=== PATIENT | male | born 1935 | race Caucasian/White ===

== ENCOUNTER → 2017-11-26 13:42 | Outpatient (CLI) | payer OTHER, SELFPAY ==
[2017-11-26 14:37] LABS: Hemoglobin 11.2 g/dL (13.5-17.5); Neutrophils Absolute Auto 1200 /uL (3000-5900); White Blood Cell Count 3.6 X10^3/uL (4.5-11.0)
[2017-11-26 14:48] LABS: Add Manual Diff / Slide Review NO; Eosinophils Percent Auto 0.9 % (2-4); Hematocrit 33.7 % (41-53); Lymphocytes Percent Auto 36.3 % (25-40); Mean Corpuscular HGB Conc 33.2 % (30-36); Mean Corpuscular Hemoglobin 28.1 PG (26-34); Mean Corpuscular Volume 84.5 fL (80-100); Monocytes Percent Auto 27.3 % (3-14); Neutrophils Percent Auto 34.5 % (50-75); Platelet Count 183 X10^3/uL (150-400); Red Blood Cell Count 3.99 X10^6/uL (4.5-5.9); Red Cell Distribution Width 16.7 % (11.6-14.8)
[2017-11-29 14:12] LABS: Albumin 23 %; Protein/ Creatinine Ratio 149 mg/g creat (22-128); Total Urine Protein 25 mg/dL (5-25); Urine Creatinine, Random 168 mg/dL (20-370)
[2017-11-29 16:40] LABS: Abnormal Protein Band 1 5 mg/dL (NONE DETECTED)
[2017-12-05 13:37] LABS: Albumin 23; Alpha 1 Globulin 3; Alpha 2 Globulin 8
[2017-12-05 13:38] LABS: Beta 1 Globulin 18; Gamma Globulin 48
[2017-12-06 17:17] LABS: Protein, Total 8.4 g/dL (6.1-8.1)
== END ==
PROVIDERS: Family Provider Family Medicine; PCP Family Medicine; Visit Provider Family Medicine
DX: D47.2 Monoclonal gammopathy (principal)
CPT/HCPCS: 36415; 84155; 84156; 84165; 84166; 85025

== ENCOUNTER 2018-05-05 09:23 | Emergency (ER) | payer OTHER, SELFPAY ==
[2018-05-05 09:38] VITALS: BP 160/75; PULSE 76; RESP 14; TEMP 36.7; O2SAT 98
--- NOTE | 2018-05-05 09:45 | ED_ITS ---
HPI - Back Pain/Injury General Chief Complaint: Back Pain/Injury Stated Complaint: lower back issue Time Seen by Provider: 05/05/18 09:35 Source: patient Mode of arrival: ambulatory Limitations: no limitations History of Present Illness HPI Narrative: Patient is an 83-year-old male with a history of prostate cancer here for evaluation of 3 days of lower back pain. He does state that it does radiate somewhat down to his left leg. No specific trauma. Not worse with palpation. Somewhat worse with moving. No fevers. No bowel changes. No urinary incontinence however he states that he did not take his Flomax last evening. States that he has not had a scan for his prostate cancer? sometime ? no saddle anesthesia. Related Data Previous Rx's Medication Instructions Recorded fluticasone 0.05 mg INTRANASAL Q DAY PRN PRN 03/01/17 #1 spr sildenafil (antihypertensive) 20 mg PO Q DAY PRN PRN #40 tab 07/05/17 tamsulosin [Flomax] 0.4 mg PO QDAY #90 cap 01/16/18 omeprazole 20 mg capsule,delayed 20 mg PO BID #180 cap 03/04/18 release meloxicam [Mobic] 7.5 mg PO DAILY #30 tab 05/05/18 Allergies Allergy/AdvReac Type Severity Reaction Status Date / Time Penicillins [PENICILLINS] Allergy Unknown Verified 05/05/18 09:41 Review of Systems Constitutional Denies fever(s), Denies headache(s) and Denies weakness ENT Ears, Nose, Mouth, and Throat: Denies headache(s) and Denies disequilibrium Cardiovascular Denies chest pain and Denies dyspnea Respiratory Denies dyspnea Gastrointestinal Gastrointestinal: Denies abdominal pain, Denies change in stool character, Denies nausea and Denies vomiting Genitourinary Denies dysuria, Denies urinary frequency, Denies urinary hesitancy, Denies urinary incontinence and Denies urinary urgency Musculoskeletal Reports back pain, Denies myalgias and Denies arthralgias Integumentary/Breasts Denies rash Neurologic Denies headache(s), Reports radicular pain, Reports paresthesias (Left lower extremity), Denies disequilibrium and Denies weakness Hematologic/Lymphatic Comments: Not on anticoagulation PFSH Medical History Mesenteric panniculitis (Chronic ~2012) Erectile dysfunction (Chronic Unknown) BPH (benign prostatic hyperplasia) (Chronic Unknown) Hyperlipemia (Resolved Unknown) Allergic rhinitis (Chronic 1971) Rosacea (Chronic Unknown) Prostate cancer (Resolved 2007) Skin cancer (Chronic Unknown) Tinnitus of both ears (Chronic Unknown) Arthritis (Chronic Unknown) Fractures (Resolved 2008) Hemorrhoids (Resolved 2011) Measles (Resolved 1943) Mumps (Resolved 1943) Surgical History Hx of prostatectomy (Resolved ~2007) Hx of hand surgery (Resolved 1978) Status post appendectomy (Resolved) Social History Smoking Status: Never smoker alcohol intake: never substance use type: does not use Exam Initial Vital Signs Initial Vital Signs: Vital Signs Temperature 98.0 F 05/05/18 09:38 Pulse Rate 76 05/05/18 09:38 Respiratory Rate 14 05/05/18 09:38 Blood Pressure 160/75 H 05/05/18 09:38 Pulse Oximetry 98 05/05/18 09:38 Const General: cooperative, healthy appearing, comfortable, well developed, well groomed and No acute distress Orientation: alert, awake and oriented x3 HENMT Head: normal to inspection and normocephalic Resp Effort & Inspection: normal respiratory effort Auscultation: clear to auscultation bilaterally Cardio Rate: regular rate Rhythm: regular rhythm GI Inspection: non-distended Palpation: soft and No firm Back/Spine/Pelvis Back: No CVA tenderness Thoracic/Lumbar Spine: No thoraco-lumbar spasm, No thoracic spinal tenderness and No lumbar spinal tenderness Sacroiliac Joints: nontender and No tender to palpation Skin Lesions: no lesions Rashes: no rashes Neuro General: alert, awake and oriented x3 Cognition: normal cognition Speech: speech normal Gait: normal gait Motor: muscle tone normal throughout Sensory Exam: no sensory deficits noted Extrem General: normal to inspection and capillary refill normal Psych Appearance: grossly normal and well kempt Course Orders Ordered: ED Orders 05/05/18 10:06 US abd aorta aneurysm screen Stat Vital Signs - 8 hr 05/05/18 09:38 05/05/18 11:04 Temperature 98.0 F 97.8 F Pulse Rate 76 64 Respiratory Rate 14 16 Blood Pressure 160/75 H Blood Pressure [Right Arm] 162/84 H Pulse Oximetry 98 96 MDM - Back Pain/Injury Lab Data Attestation: I reviewed the patient's lab results. Urine Dip Bedside Urine Glucose Negative Bedside Urine Bilirubin - Negative Bedside Urine Ketone - Negative Urine Specific [place] 1.025 Bedside Urine Occult Blood - Negative Bedside Urine pH 6.0 Bedside Urine Protein +/- 15 Bedside Urine Urobilinogen - Negative Bedside Urine Nitrite - Negative Bedside Urine Leukocytes - Negative Esterase Imaging Data US - abdomen: Radiologist's impression: PROCEDURE: US ABD AORTA ANEURYSM SCREEN INDICATIONS: back pain TECHNIQUE: Real time scanning was performed of the aorta and iliac arteries, with image documentation. COMPARISON: None. FINDINGS: Aorta: Proximal abdominal aorta is obscured by bowel gas and cannot be evaluated. Mid-aorta measures 1.8 cm. Distal aortic diameter is 1.9 cm. Iliac arteries: Right common iliac artery measures 1.3 cm. Left common iliac artery measures 1.2 cm. IMPRESSION: No aneurysm identified in the visualized abdominal aorta. Proximal segment of the abdominal aorta is not visualized due to bowel gas and cannot be evaluated. Dictated by: Mayte Benz MD, PhD on 05/05/2018 at 10:32 Approved by: Mayte Benz MD, PhD on 05/05/2018 at 10:33 [facility] Narrative Medical decision making narrative: Patient's AAA study unremarkable. Urine unremarkable. No rashes consistent with zoster. He does have a history of prostate cancer. I discussed with him the options to include conservative treatment with medications versus obtaining an MRI to evaluate for metastasis. No neurologic change in his extremities. Patient states that the last time he had an MRI he had a difficult time with claustrophobia. He stated that he would rather do conservative treatment for now and then if his symptoms do not improve get an MRI at a later basis by his primary care doctor. He has no red flag symptoms concerning for cauda equina today. Patient does not want any ? mind altering ?medications due to his history of alcoholism. Will send home with prescription for Mobic. He was given other conservative treatments. He was given return precautions. He expressed understanding and agreement with plan. Discharge Plan Departure Patient Disposition: Home Clinical Impression: Lower back pain Instructions: Back Pain (Alternative Therapy), Low Back Pain, Activity May Be Better then Rest for Low Back Pain Recovery Activity Restrictions/Additional Instructions: I recommend that you continue all of your medications as directed. Start taking the Mobic like we discussed. I also recommend that you contact your primary care doctor for a follow-up so that if your symptoms do not improve you can discuss the indications for an MRI. Return to the emergency department for any new or worsening symptoms Prescriptions: New meloxicam [Mobic] 7.5 mg tablet 7.5 mg PO DAILY Qty: 30 RF: 0 No Action omeprazole 20 mg capsule,delayed release(DR/EC) 20 mg PO BID Qty: 180 RF: 3 fluticasone 16 GM spray,suspension 0.05 mg Intranasal Q DAY PRN PRNQty: 1 RF: 5 sildenafil (antihypertensive) 20 MG tablet 20 mg PO Q DAY PRN PRNQty: 40 RF: 5 tamsulosin [Flomax] 0.4 mg capsule 0.4 mg PO QDAY Qty: 90 RF: 3
--- NOTE | 2018-05-05 09:55 | PC.NURSE ---
Neuro intact. Moving bowels regularly. No urinary retention. Denies numbness, [place] = well.
--- NOTE | 2018-05-05 10:06 | DI.US.S_ITS ---
PROCEDURE: US ABD AORTA ANEURYSM SCREEN INDICATIONS: back pain TECHNIQUE: Real time scanning was performed of the aorta and iliac arteries, with image documentation. COMPARISON: None. FINDINGS: Aorta: Proximal abdominal aorta is obscured by bowel gas and cannot be evaluated. Mid-aorta measures 1.8 cm. Distal aortic diameter is 1.9 cm. Iliac arteries: Right common iliac artery measures 1.3 cm. Left common iliac artery measures 1.2 cm. IMPRESSION: No aneurysm identified in the visualized abdominal aorta. Proximal segment of the abdominal aorta is not visualized due to bowel gas and cannot be evaluated. Dictated by: Mayte Benz MD, PhD on 05/05/2018 at 10:32 Approved by: Mayte Benz MD, PhD on 05/05/2018 at 10:33
[2018-05-05 11:04] VITALS: BP 162/84; PULSE 64; RESP 16; TEMP 36.6; O2SAT 96
[2018-05-05 11:46] VITALS: BP 152/87; PULSE 63; RESP 20; O2SAT 98
== END 2018-05-05 11:47 | disposition home or self-care (01) ==
PROVIDERS: Emergency Provider Emergency Medicine; PCP Student in an Organized Health Care Education/Training Program
DX: M54.5 Low back pain (principal)
CPT/HCPCS: 76706; 81003; 99282; 99284

== ENCOUNTER 2018-05-27 09:45 | Outpatient (RCR) | payer OTHER, SELFPAY ==
--- NOTE | 2018-04-17 16:34 | PT.OIE ---
Current Diagnoses Benign paroxysmal vertigo, unspecified ear (04/17/18) Past Medical History (Last Updated 03/06/18 @ 08:12 by Gerald Joel MD) Mesenteric panniculitis (Chronic ~2012) Erectile dysfunction (Chronic Unknown) BPH (benign prostatic hyperplasia) (Chronic Unknown) Hyperlipemia (Resolved Unknown) Allergic rhinitis (Chronic 1972) Rosacea (Chronic Unknown) Prostate cancer (Resolved 2007) Skin cancer (Chronic Unknown) Tinnitus of both ears (Chronic Unknown) Arthritis (Chronic Unknown) Fractures (Resolved 2008) Hemorrhoids (Resolved 2011) Measles (Resolved 1943) Mumps (Resolved 1943) Past Surgical History (Last Updated 03/06/18 @ 08:12 by Gerald Joel MD) Hx of prostatectomy (Resolved ~2007) Hx of hand surgery (Resolved 1978) Status post appendectomy (Resolved) Provider Visit Care Team Role Provider Type Destin Rocha MD Family Provider Physician Specialty: Family Practice Address: [address] [place] [address] Email: [email or web address] Gerald Joel MD Attending Provider Physician Primary Care Provider Specialty: Internal Medicine Address: [address] [place] [address] Email: Physical Therapy Initial Evaluation PT-OP-A Visit Information Start: 04/17/18 08:18 Freq: Status: Active Protocol: Document 04/17/18 13:45 AMB (Rec: 04/19/18 16:08 AMB [email or web address]) Out-Patient Physical Therapy Visit Information Visit Information Visit Type Initial Evaluation Visit Start Time 13:45 Visit Stop Time 14:30 Total Visit Minutes 45 Visit Number 1 Evaluation Information Evaluation Date 04/17/18 PT-OP-B Current Condition Start: 04/17/18 08:18 Freq: Status: Active Protocol: Document 04/17/18 13:45 AMB (Rec: 04/19/18 16:25 AMB [email or web address]) Current Condition History of Current Condition Onset Date 2018 Current Complaints dizziness with quick head movements History of Current Condition The patient was seen a few months ago by his PCP. At that time he did have dizziness and spinning with rolling over in bed. Now that has resolved, but he does have a few moments of dizziness when coming up from bending forward, and when turning quickly. He was tested at his PCPs office for orthostatic hypotension and per his report that was negative. He has been managing his 's transition to institutional care for her Alzheimer's and that is why it took so long to get in here . Prior Functional Status Baseline Function- ADL's Independent Baseline Function- Mobility Independent Current Functional Impairments (Reported) Functional Limitations- ADL's Difficulty with quick turns of the head Personal Factors Other Personal Factors That May Effect history of prostate cancer Therapy/Recovery PT-OP-C Subjective Start: 04/17/18 08:18 Freq: Status: Active Protocol: Document 04/17/18 13:45 AMB (Rec: 04/19/18 16:10 AMB [email or web address]) Patient Questionnaires ABC- Activity Specific Balance Confidence Scale ABC Score 97 ABC Functional Impairment 1 to <20% Impaired (Score 81- 99) Dizziness Handicap Inventory DHI Score 8 DHI Functional Impairment 1 to 19% Impaired (Score 1-19) PT-OP-D Balance Start: 04/17/18 08:18 Freq: Status: Active Protocol: Document 04/17/18 13:45 AMB (Rec: 04/19/18 16:15 AMB [email or web address]) Balance Tests Single Limb Standing Single Limb- Right 10 sec Single Limb- Left 10 sec PT-OP-O Vestibular Start: 04/17/18 08:18 Freq: Status: Active Protocol: Document 04/17/18 13:45 AMB (Rec: 04/19/18 16:15 AMB [email or web address]) Vestibular Assessment Visual Testing Smooth Pursuits Horizontal WFL Smooth Pursuits Vertical WFL Saccades Horizontal WFL Saccades Vertical WFL Gaze Evoked Nystagmus With Fixation Negative Thrust Head Negative DVA (Line Degradation) 2 Positional Testing Danis-Hallpike Negative Left Negative Right Supine to Sit dizzy only PT-OP-Q Treatments Start: 04/17/18 08:18 Freq: Status: Active Protocol: Document 04/17/18 13:45 AMB (Rec: 04/19/18 16:25 AMB [email or web address]) Neuro Re-Education Treatment Balance Activities 1 Details modified tandem stance Vestibular Rehabilitation X1 Viewing Details standing Background white Distance From Target arm length Speed quick PT-OP-T Assessment and Plan Start: 04/17/18 08:18 Freq: Status: Active Protocol: Document 04/17/18 13:45 AMB (Rec: 04/19/18 16:34 AMB [email or web address]) Physical Therapy Assessment Rehab Potential Rehabilitation Potential Good Evaluation Complexity Number of Personal Factors/Comorbidities 1-2 Number of Body Systems Impaired 1-2 Clinical Presentation at Evaluation Stable Impairments Impairments Balance Vestibular Goals One Impairment Dizziness Short Term Goal (STG) The patient will bend forward and stand back up without LOB or dizziness STG Duration 4 weeks Detention Goal (LTG) The patient will move from supine to sit without dizziness or feeling off balance. LTG Duration 8 weeks Assessment Summary Assessment The patient attends physical therapy, and while his symptoms sound that at one time he may have had BPPV, he did not show signs of active BPPV at this time. It is possible that given the time since his onset of symptoms the canaliths have since self corrected, and now he has some lingering vestibular hypofunction because of the irritation of the BPPV. He will benefit from a short bout of vestibular therapy to improve his management of his symptoms. Physical Therapy Plan Frequency and Duration Frequency of Treatment Every Other Week Duration of Treatment 8 weeks Plan of Care Start Date 04/17/18 Plan of Care End Date 06/12/18 Therapeutic Interventions Therapeutic Interventions Balance Training Gait Training Home Exercise Program Neuromuscular Re-education Self-Care/Home Management Therapeutic Activities Therapeutic Exercises Vestibular Rehabilitation Next Visit Focus/Plan Next Note Type Treatment Note Next Visit Plan Reassess VOR, expand HEP to include bowing, more challenging balance
--- NOTE | 2018-04-19 16:35 | PT.OPPOC ---
Current Diagnoses Benign paroxysmal vertigo, unspecified ear (04/17/18) Provider Visit Care Team Role Provider Type Destin Rocha MD Family Provider Physician Specialty: Family Practice Address: [facility] [place], [address] Email: [email or web address] Gerald Joel MD Attending Provider Physician Primary Care Provider Specialty: Internal Medicine Address: [address] [place] [address], [id number] Email: Plan Of Care PT-OP-T Assessment and Plan Start: 04/17/18 08:18 Freq: Status: Active Protocol: Document 04/17/18 13:45 AMB (Rec: 04/19/18 16:34 AMB [email or web address]) Physical Therapy Assessment Rehab Potential Rehabilitation Potential Good Evaluation Complexity Number of Personal Factors/Comorbidities 1-2 Number of Body Systems Impaired 1-2 Clinical Presentation at Evaluation Stable Impairments Impairments Balance Vestibular Goals One Impairment Dizziness Short Term Goal (STG) The patient will bend forward and stand back up without LOB or dizziness STG Duration 4 weeks Residential Goal (LTG) The patient will move from supine to sit without dizziness or feeling off balance. LTG Duration 8 weeks Assessment Summary Assessment The patient attends physical therapy, and while his symptoms sound that at one time he may have had BPPV, he did not show signs of active BPPV at this time. It is possible that given the time since his onset of symptoms the canaliths have since self corrected, and now he has some lingering vestibular hypofunction because of the irritation of the BPPV. He will benefit from a short bout of vestibular therapy to improve his management of his symptoms. Physical Therapy Plan Frequency and Duration Frequency of Treatment Every Other Week Duration of Treatment 8 weeks Plan of Care Start Date 04/17/18 Plan of Care End Date 06/12/18 Therapeutic Interventions Therapeutic Interventions Balance Training Gait Training Home Exercise Program Neuromuscular Re-education Self-Care/Home Management Therapeutic Activities Therapeutic Exercises Vestibular Rehabilitation Next Visit Focus/Plan Next Note Type Treatment Note Next Visit Plan Reassess VOR, expand HEP to include bowing, more challenging balance Plan of Care Dates Plan of Care Start Date 04/17/18 Plan of Care End Date 06/12/18 Please Sign and Return: I have reviewed this Plan of Care and certify that the skilled therapy services above are required to meet the patient?s needs. Physician Signature Date Printed Name and Credentials Clinical Instructor Signature Printed Name and Credentials
--- NOTE | 2018-05-27 12:59 | PT.OTN ---
Current Diagnoses Benign paroxysmal vertigo, unspecified ear (05/27/18) Physical Therapy Treatment Note PT-OP-A Visit Information Start: 04/17/18 08:18 Freq: Status: Active Protocol: Document 05/27/18 09:45 AMB (Rec: 05/27/18 12:58 AMB [email or web address]) Out-Patient Physical Therapy Visit Information Visit Information Visit Type Treatment Note Visit Start Time 09:45 Visit Stop Time 10:30 Total Visit Minutes 45 Visit Number 2 PT-OP-B Current Condition Start: 04/17/18 08:18 Freq: Status: Active Protocol: Document 04/17/18 13:45 AMB (Rec: 04/19/18 16:25 AMB [email or web address]) Current Condition History of Current Condition Onset Date 2017 Current Complaints dizziness with quick head movements History of Current Condition The patient was seen a few months ago by his PCP. At that time he did have dizziness and spinning with rolling over in bed. Now that has resolved, but he does have a few moments of dizziness when coming up from bending forward, and when turning quickly. He was tested at his PCPs office for orthostatic hypotension and per his report that was negative. He has been managing his 's transition to institutional care for her Alzheimer's and that is why it took so long to get in here . Prior Functional Status Baseline Function- ADL's Independent Baseline Function- Mobility Independent Current Functional Impairments (Reported) Functional Limitations- ADL's Difficulty with quick turns of the head Personal Factors Other Personal Factors That May Effect history of prostate cancer Therapy/Recovery PT-OP-C Subjective Start: 04/17/18 08:18 Freq: Status: Active Protocol: Document 05/27/18 09:45 AMB (Rec: 05/27/18 12:59 AMB [email or web address]) OP-PT Subjective Patient Comments Patient Comments Pt is doing well, overall feels better, but avoiding fast head movements just in case. PT-OP-D Balance Start: 04/17/18 08:18 Freq: Status: Active Protocol: Document 04/17/18 13:45 AMB (Rec: 04/19/18 16:15 AMB [email or web address]) Balance Tests Single Limb Standing Single Limb- Right 10 sec Single Limb- Left 10 sec PT-OP-O Vestibular Start: 04/17/18 08:18 Freq: Status: Active Protocol: Document 12/06/18 13:45 AMB (Rec: 04/19/18 16:15 AMB [email or web address]) Vestibular Assessment Visual Testing Smooth Pursuits Horizontal WFL Smooth Pursuits Vertical WFL Saccades Horizontal WFL Saccades Vertical WFL Gaze Evoked Nystagmus With Fixation Negative Thrust Head Negative DVA (Line Degradation) 2 Positional Testing Danis-Hallpike Negative Left Negative Right Supine to Sit dizzy only PT-OP-Q Treatments Start: 04/17/18 08:18 Freq: Status: Active Protocol: Document 05/27/18 09:45 AMB (Rec: 05/27/18 12:58 AMB [email or web address]) Neuro Re-Education Treatment Balance Activities 3 Details bosu ball balance, double leg 2 Details single leg balance 1 Details modified tandem stance Vestibular Rehabilitation X1 Viewing Details standing Background white Distance From Target arm length Speed quick Other Activities 1 Details [place] with head turn PT-OP-T Assessment and Plan Start: 04/17/18 08:18 Freq: Status: Active Protocol: Document 05/27/18 09:45 AMB (Rec: 05/27/18 12:58 AMB [email or web address]) Physical Therapy Assessment Goals One Impairment Dizziness Short Term Goal (STG) The patient will bend forward and stand back up without LOB or dizziness STG Duration MET Correction Goal (LTG) The patient will move from supine to sit without dizziness or feeling off balance. LTG Duration MET Assessment Summary Assessment The patient has had a good resolution of sx. He states he continues to be careful with faster movements. He has had some back pain, so that is part of it. Physical Therapy Plan Discharge Physical Therapy Discharge Reasons Goals Met
== END 2018-07-02 08:51 ==
LOC: PHYS 09:45
PROVIDERS: Family Provider Family Medicine; PCP Student in an Organized Health Care Education/Training Program; Visit Provider Student in an Organized Health Care Education/Training Program
DX: H81.10 Benign paroxysmal vertigo, unspecified ear (principal)
CPT/HCPCS: 97112; 97161

== ENCOUNTER → 2018-12-15 14:17 | Outpatient (CLI) | payer OTHER, SELFPAY ==
[2018-12-15 14:55] LABS: Hematocrit 33.8 % (41-53); Hemoglobin 11.2 g/dL (13.5-17.5); Mean Corpuscular Hemoglobin 28.3 PG (26-34); Mean Corpuscular Volume 85.6 fL (80-100); Platelet Count 198 X10^3/uL (150-400); Red Blood Cell Count 3.95 X10^6/uL (4.5-5.9); Red Cell Distribution Width 17.1 % (11.6-14.8); White Blood Cell Count 3.8 X10^3/uL (4.5-11.0)
[2018-12-15 15:55] LABS: Alanine Aminotransferase 22 IU/L (21-72); Albumin 4.2 g/dL (3.5-5.0); Alkaline Phosphatase 75 U/L (38-126); Aspartate Aminotransferase 24 IU/L (17-59); BUN Creatinine Ratio 21.1 (6-22); Bilirubin Total 0.5 mg/dL (0.2-1.3); Blood Urea Nitrogen 19 mg/dL (9-20); Calcium 9.2 mg/dL (8.4-10.2); Carbon Dioxide 24 mmol/L (22-32); Chloride 105 mmol/L (98-107); Estimated Glomerular Filt Rate > 60.0 mL/min (>60); Globulin 4.4 g/dL (1.7-4.1); Glucose 93 mg/dL (80-110); HEMOLYSIS < 15 (0-50); Potassium 3.8 mmol/L (3.4-5.1); Sodium 140 mmol/L (137-145); Total Protein 8.6 g/dL (6.3-8.2)
[2018-12-15 16:06] LABS: Total Cells Counted 100
[2018-12-15 16:07] LABS: Neutrophils Absolute Manual 1634 /uL (3000-5900); Poikilocytosis 1+
[2018-12-15 16:08] LABS: Anisocytosis 1+
[2018-12-19 16:16] LABS: Abnormal Protein Band 1 1.9 g/dL (NONE DETECTED); Alpha 1 Globulin 0.3 g/dL (0.2-0.3); Alpha 2 Globulin 0.6 g/dL (0.5-0.9); Beta 1 Globulin 0.4 g/dL (0.4-0.6); Gamma Globulin 2.6 g/dL (0.8-1.7); Protein, Total 8.2 g/dL (6.1-8.1)
== END ==
PROVIDERS: Family Provider Family Medicine; PCP Student in an Organized Health Care Education/Training Program; Visit Provider Student in an Organized Health Care Education/Training Program
DX: C61 Malignant neoplasm of prostate (principal); D47.2 Monoclonal gammopathy
CPT/HCPCS: 36415; 80053; 84155; 84165; 85025

== ENCOUNTER → 2019-11-23 14:02 | Outpatient (CLI) | payer OTHER, SELFPAY ==
[2019-11-23 16:01] LABS: Alanine Aminotransferase 17 IU/L (<50); Albumin 4.6 g/dL (3.5-5.0); Albumin Globulin Ratio 1.1 (1.0-2.8); Alkaline Phosphatase 72 U/L (38-126); Aspartate Aminotransferase 33 IU/L (17-59); BUN Creatinine Ratio 35.4 (6-22); Bilirubin Total 0.6 mg/dL (0.2-1.3); Blood Urea Nitrogen 28 mg/dL (9-20); Calcium 9.5 mg/dL (8.4-10.2); Carbon Dioxide 30 mmol/L (22-32); Chloride 105 mmol/L (98-107); Cholesterol 156 mg/dL (140-199); Estimated Glomerular Filt Rate > 60.0 mL/min (>60); Globulin 4.2 g/dL (1.7-4.1); Glucose 98 mg/dL (80-110); HDL Cholesterol 30 mg/dL (40-60); HEMOLYSIS < 15 (0-50); LDL Cholesterol Calculated 110 mg/dL (<100); Potassium 3.8 mmol/L (3.4-5.1); Sodium 141 mmol/L (137-145); Total Protein 8.8 g/dL (6.3-8.2); Triglycerides 82 mg/dL (35-150)
[2019-11-23 16:32] LABS: Prostate Specific Antigen 0.342 ng/mL (0.10-4.00)
== END ==
PROVIDERS: Family Provider Family Medicine; PCP Student in an Organized Health Care Education/Training Program; Referring Provider Student in an Organized Health Care Education/Training Program; Visit Provider Student in an Organized Health Care Education/Training Program
DX: C61 Malignant neoplasm of prostate (principal); Z90.79 Acquired absence of other genital organ(s); D47.2 Monoclonal gammopathy; Z79.1 Long term (current) use of non-steroidal anti-inflammatories (NSAID); E78.5 Hyperlipidemia, unspecified
CPT/HCPCS: 36415; 80053; 80061; 84153

== ENCOUNTER → 2020-06-17 13:37 | Outpatient (CLI) | payer OTHER, SELFPAY ==
[2020-06-17 15:02] LABS: Hematocrit 40.8 % (41-53); Hemoglobin 13.9 g/dL (13.5-17.5); Mean Corpuscular HGB Conc 34.2 % (30-36); Mean Corpuscular Hemoglobin 30.2 PG (26-34); Mean Corpuscular Volume 88.3 fL (80-100); Platelet Count 173 X10^3/uL (150-400); Red Blood Cell Count 4.62 X10^6/uL (4.5-5.9); Red Cell Distribution Width 13.9 % (11.6-14.8); White Blood Cell Count 6.5 X10^3/uL (4.5-11.0)
[2020-06-17 15:04] LABS: Add Manual Diff / Slide Review YES
[2020-06-17 15:18] LABS: Alanine Aminotransferase 18 IU/L (<50); Albumin 4.2 g/dL (3.5-5.0); Albumin Globulin Ratio 0.9 (1.0-2.8); Alkaline Phosphatase 75 U/L (38-126); Aspartate Aminotransferase 30 IU/L (17-59); BUN Creatinine Ratio 21.4 (6-22); Bilirubin Total 0.8 mg/dL (0.2-1.3); Blood Urea Nitrogen 18 mg/dL (9-20); Calcium 9.3 mg/dL (8.4-10.2); Carbon Dioxide 30 mmol/L (22-32); Chloride 102 mmol/L (98-107); Cholesterol 142 mg/dL (140-199); Estimated Glomerular Filt Rate > 60.0 mL/min (>60); Globulin 4.8 g/dL (1.7-4.1); Glucose 104 mg/dL (80-110); HDL Cholesterol 28 mg/dL (40-60); HEMOLYSIS < 15 (0-50); LDL Cholesterol Calculated 97 mg/dL (<100); Potassium 3.5 mmol/L (3.4-5.1); Sodium 140 mmol/L (137-145); Triglycerides 83 mg/dL (35-150)
[2020-06-17 15:43] LABS: Alanine Aminotransferase 18 IU/L (<50); Albumin 4.4 g/dL (3.5-5.0); Alkaline Phosphatase 75 U/L (38-126); Aspartate Aminotransferase 27 IU/L (17-59); Bilirubin Total 0.8 mg/dL (0.2-1.3); Bilirubin Unconjugated 0.8 mg/dL (0.0-1.1); Globulin 4.3 g/dL (1.7-4.1); HEMOLYSIS < 15 (0-50); Total Protein 8.7 g/dL (6.3-8.2)
[2020-06-17 16:15] LABS: Neutrophils Absolute Manual 3770 /uL (3000-5900); RBC Morphology Normal Morphology; Total Cells Counted 100
[2020-06-21 13:36] LABS: Total Urine Protein 52.5 mg/dL (Not Estab.)
[2020-06-21 14:37] LABS: Albumin 4.1 g/dL (2.9-4.4); Alpha-1-Globulin 0.2 g/dL (0.0-0.4); Alpha-2-Globulin 0.6 g/dL (0.4-1.0); Gamma Globulin 2.8 g/dL (0.4-1.8); Globulin Total 4.4 g/dL (2.2-3.9); Protein, Total 8.5 g/dL (6.0-8.5)
--- NOTE | 2020-06-27 10:51 | ONC.MSW ---
Description: New Referral Navigation Reason for Referral: Iron Deficiency Anemia, Monoclonal Gammopathy Activity: Reviewed referral for acuity, medical status, and immediate needs. Forwarded to scheduling for next available initial consult visit time.
== END ==
PROVIDERS: Student in an Organized Health Care Education/Training Program; Family Provider Family Medicine; PCP Family Medicine; Referring Provider Family Medicine; Visit Provider Family Medicine
DX: D47.2 Monoclonal gammopathy (principal); C61 Malignant neoplasm of prostate; E78.5 Hyperlipidemia, unspecified; D50.9 Iron deficiency anemia, unspecified; N40.1 Benign prostatic hyperplasia with lower urinary tract symptoms; R35.1 Nocturia
CPT/HCPCS: 36415; 80053; 80061; 80076; 84155; 84156; 84165; 84166; 85007; 85025

== ENCOUNTER → 2021-04-25 14:22 | Outpatient (CLI) | payer OTHER, SELFPAY ==
--- NOTE | 2021-04-25 14:24 | DI.RAD.S_ITS ---
PROCEDURE: XR SHOULDER LT MIN 2V INDICATIONS: left shoulder pain and arthritis TECHNIQUE: 3 views of the shoulder were acquired. COMPARISON: None. FINDINGS: Bones: The left acromioclavicular joint has degenerative changes with joint space narrowing, subchondral sclerosis, and osteophytes. Are mild degenerative changes of the left glenohumeral joint. Soft tissues: No suspicious soft tissue calcifications. IMPRESSION: 1. No acute abnormality. 2. Degenerative changes of the left acromioclavicular joint and glenohumeral joint. Dictated by: Zhao Lei M.D. on 04/25/2021 at 15:51 Approved by: Zhao Lei M.D. on 04/25/2021 at 15:53
== END ==
PROVIDERS: PCP Family Medicine; Referring Provider Family Medicine; Visit Provider Family Medicine
DX: M25.512 Pain in left shoulder (principal); M19.90 Unspecified osteoarthritis, unspecified site; G89.29 Other chronic pain
CPT/HCPCS: 73030

== ENCOUNTER → 2022-01-30 16:07 | Outpatient (CLI) | payer OTHER, SELFPAY ==
[2022-01-30 16:56] LABS: Hematocrit 36.6 % (41-53); Hemoglobin 12.7 g/dL (13.5-17.5); Mean Corpuscular HGB Conc 34.7 % (30-36); Mean Corpuscular Hemoglobin 28.6 PG (26-34); Mean Corpuscular Volume 82.4 fL (80-100); Platelet Count 186 X10^3/uL (150-400); Red Blood Cell Count 4.44 X10^6/uL (4.5-5.9); Red Cell Distribution Width 14.4 % (11.6-14.8)
[2022-01-30 16:57] LABS: Add Manual Diff / Slide Review YES
[2022-01-30 17:12] LABS: Alanine Aminotransferase 16 IU/L (<50); Albumin 4.3 g/dL (3.5-5.0); Albumin Globulin Ratio 0.9 (1.0-2.8); Alkaline Phosphatase 61 U/L (38-126); Aspartate Aminotransferase 29 IU/L (17-59); BUN Creatinine Ratio 20.9 (6-22); Bilirubin Total 0.7 mg/dL (0.2-1.3); Blood Urea Nitrogen 19 mg/dL (9-20); Calcium 8.8 mg/dL (8.4-10.2); Carbon Dioxide 26 mmol/L (22-32); Chloride 103 mmol/L (98-107); Estimated Glomerular Filt Rate > 60 mL/min (>60); Globulin 4.7 g/dL (1.7-4.1); Glucose 110 mg/dL (80-110); HEMOLYSIS < 15 (0-50); Lactate Dehydrogenase 392 U/L (313-618); Potassium 3.7 mmol/L (3.4-5.1); Sodium 140 mmol/L (137-145)
[2022-01-30 18:20] LABS: Neutrophils Absolute Manual 2300 /uL (3000-5900); RBC Morphology Normal Morphology; Total Cells Counted 100
[2022-01-31 13:56] LABS: Free Kappa Lt Chains, Serum 159.3 mg/L (3.3-19.4); Free Lambda Lt Chains,Serum 21.7 mg/L (5.7-26.3)
[2022-02-01 16:40] LABS: Immunoglobulin A, Serum 219 mg/dL (61-437); Immunoglobulin G,Serum 2971 mg/dL (603-1613); Immunoglobulin M, Serum 195 mg/dL (15-143)
== END ==
PROVIDERS: PCP Family Medicine; Referring Provider Nurse Practitioner Acute Care; Visit Provider Internal Medicine Hematology & Oncology
DX: I50.22 Chronic systolic (congestive) heart failure (principal); C90.00 Multiple myeloma not having achieved remission
CPT/HCPCS: 36415; 80053; 82784; 83615; 83883; 84155; 85007; 85025; 86334

== ENCOUNTER → 2022-05-07 10:57 | Outpatient (CLI) | payer OTHER, SELFPAY ==
[2022-05-07 12:23] LABS: COVID19 -Nasal RAPID Negative (Negative)
[2022-05-07 13:22] LABS: Hemoglobin 13.1 g/dL (13.5-17.5); Mean Corpuscular HGB Conc 33.5 % (30-36); Mean Corpuscular Hemoglobin 28.2 PG (26-34); Mean Corpuscular Volume 84.2 fL (80-100); Platelet Count 205 X10^3/uL (150-400); Red Blood Cell Count 4.63 X10^6/uL (4.5-5.9); Red Cell Distribution Width 14.8 % (11.6-14.8)
[2022-05-07 13:41] LABS: Add Manual Diff / Slide Review YES
[2022-05-07 13:44] LABS: Neutrophils Absolute Manual 2950 /uL (3000-5900); RBC Morphology Normal Morphology; Total Cells Counted 100
== END ==
PROVIDERS: PCP Family Medicine; Referring Provider Internal Medicine Cardiovascular Disease; Visit Provider Internal Medicine Cardiovascular Disease
DX: I42.8 Other cardiomyopathies (principal); Z20.822 Contact with and (suspected) exposure to COVID-19
CPT/HCPCS: 36415; 85007; 85025; 87635; C9803

== ENCOUNTER → 2022-07-26 14:43 | Outpatient (CLI) | payer OTHER, SELFPAY ==
--- NOTE | 2022-07-26 | DI.ECHO.S_ITS ---
[facility] +---------+ : : [address] : [place] : : : : [id number] : : : : Phone: [phone]---------+ Echocardiogram Report + + :Name: AMY DONAHUE Study Date: 07/26/2022 Height: 69 in : :[facility] ReadingLocation: Weight: 193 lb : : Gender: Male BSA: 2.0 m2 : :: 1935 Age: 87 yrs BP: 115/73 mmHg: :Reason For Study: CONGESTIVE HEART FAILURE HR: 65 : :Ordering Physician: MIHAELA, : :TR Performed By: JESSICA SIMON : :Referring: TR CHAIREZ : + + Interpretation Summary The ejection fraction is estimated to be 40-45%. Diastolic function could not be accurately assessed due to paced rhythm. The left atrium is moderately dilated. The right ventricle is normal in size and function. The right atrium is mildly dilated. No significant valvular abnormalities. Unable to estimate PASP. Compared to the prior study dated 01/17/2022, there is an increase in ejection fraction and decrease in mitral regurgitation. Procedure: A two-dimensional transthoracic echocardiogram with color flow and Doppler was performed. The study quality was technically adequate. Comparison is made with the echocardiogram of 01/17/2022. The patient has a paced rhythm. Left Ventricle: The left ventricle is normal in size and wall thickness. The ejection fraction is estimated to be 40-45%. Diastolic function could not be accurately assessed due to paced rhythm. Right Ventricle: The right ventricle is normal in size and function. There is a pacemaker lead in the right ventricle. Atria: The left atrium is moderately dilated. The right atrium is mildly dilated. There is a catheter/pacemaker lead seen in the right atrium. There is no Doppler evidence for an interatrial shunt. Mitral Valve: The mitral valve is normal in structure and function. There is trace mitral regurgitation. Aortic Valve: The aortic valve is trileaflet. The aortic valve opens well. There is no aortic valve stenosis. No aortic regurgitation is present. Tricuspid Valve: The tricuspid valve is normal in structure and function. No tricuspid regurgitation. Pulmonary artery pressures cannot be estimated because of the lack of a measurable TR jet velocity. Pulmonic Valve: The pulmonic valve is normal in structure and function. There is a trace or physiologic amount of pulmonic regurgitation. Great Vessels: The aortic root is normal size. The ascending aorta is at the upper limits of normal in size. The IVC is of normal diameter and collapses greater than 50% with a sniff. This suggests a low right atrial pressure of 3 mm Hg. Pericardium/ Pleura There is no pericardial effusion. There is no pleural effusion. MMode/2D Measurements & Calculations LVIDd: 4.9 cm LVOT diam: 2.1 cm LVIDs: 3.5 cm Ao root diam: 3.5 cm FS: 28.6 % asc Aorta Diam: 3.9 cm IVSd: 0.90 cm LVPWd: 1.0 cm LV quesada. diameter/BSA (cm/m^2): 2.4 LV sys. diameter/BSA (cm/m^2): 1.7 LA A2 area: 26.0 cm2 RA long axis: 6.4 cm LA A4 area: 30.2 cm2 LA length (vol): 6.4 cm LA vol: 103.8 ml LA vol index: 51.0 ml/m2 LVLs ap4: 7.5 cm LVLd ap2: 7.8 cm LVLs ap2: 6.9 cm TAPSE_phl: 2.3 cm Doppler Measurements & Calculations Ao V2 max: 128.0 cm/sec LVOT Max Moncho: 82.2 cm/sec Ao V2 mean: 95.5 cm/sec LV V1 max P.7 mmHg Ao max P.0 mmHg LV V1 VTI: 15.1 cm Ao mean P.0 mmHg WHITLEY(I,D): 2.3 cm2 Ao V2 VTI: 22.8 cm WHITLEY(V,D): 2.2 cm2 sev ratio: 0.66 WHITLEY indexed to BSA (cm^2/m^2): 1.1 MV E max moncho: 67.3 cm/sec PA V2 max: 133.0 cm/sec MV A max moncho: 26.6 cm/sec PA V2 mean: 95.0 cm/sec MV E/A: 2.5 PA mean P.0 mmHg Med Peak E' Moncho: 35.1 cm/sec PA pr(Accel): 31.3 mmHg E/E' med: 1.9 Lat Peak E' Moncho: 5.5 cm/sec E/E' lat: 12.2 E/e' average: 7.1 MV dec time: 0.38 sec SV(LVOT): 52.3 ml AV VR_phl: 0.64 WHITLEY(VTI)/BSA_phl: 1.1 MV P1/2t-pr_phl: 112.0 msec Reading Physician:05:31 PM
== END ==
PROVIDERS: PCP Family Medicine; Referring Provider Nurse Practitioner Acute Care; Visit Provider Nurse Practitioner Acute Care
DX: I50.22 Chronic systolic (congestive) heart failure (principal); Z95.0 Presence of cardiac pacemaker
CPT/HCPCS: 93306